=== PATIENT | female | born 1995 | race Hispanic/Latino ===

== ENCOUNTER 2017-07-27 13:48 | Outpatient (CLI) | payer OTHER | END 2017-07-27 13:49 | disposition home or self-care (01) | LOC: BICULT 13:48 | PROVIDERS: ATTEND Nurse Practitioner | DX: N63.0 Unspecified lump in unspecified breast (principal) ==

== ENCOUNTER 2017-10-19 20:48 | Day surgery (SDC) | payer OTHER ==
[2017-10-19 21:30] VITALS: TEMP 98.2; BMI 33.3
[2017-10-19 22:20] LABS: FFN Internal QC Analyzer PASS (PASS); FFN Internal QC Cassette PASS (PASS); Fetal Fibronectin Negative (Negative)
--- NOTE | 2017-10-20 00:26 | PRG ---
DATE OF SERVICE: 10/19/2017 TIME OF SERVICE: 2310 hours. HISTORY OF PRESENT ILLNESS: Ms. Giraldo is a 22-year-old 5, para 2, who presents complaining of mild lower abdominal pain and vaginal discharge. She denies rupture of membranes, bleeding. She reports she had a previous and previous , both at term. She sees Dr. Marcum at [facility]. TEST EVALUATOR HISTORY: Antepartum record not available on the unit. Review of last admission rev ealed the patient was A positive. PAST MEDICAL HISTORY: Denies. PAST SURGICAL HISTORY: x1. ALLERGIES: Denies. MEDICATIONS: vitamins. SOCIAL HISTORY: Denies tobacco, alcohol, or drug use. FAMILY HISTORY: Noncontributory. REVIEW OF SYSTEMS: Noncontributory. PHYSICAL EXAMINATION: GENERAL: female, in no acute distress. VITAL SIGNS: Temperature 98.6, respirations 18, pulse 85, blood pressure 118/72. HEENT: Within normal limits. LUNGS: Clear to auscultation bilaterally. HEART: Regular rhythm. ABDOMEN: Soft with occasional indentable contractions, 32-cm fundal height, FHTs 140s. PELVIC: Vulva without lesions. Vagina with slight discharge. Cervix is closed, long, and high by R N exam. EXTREMITIES: Without clubbing, cyanosis, or edema. LABORATORY DATA: CATEGORY DEVELOPMENT ANALYST-3 negative. fibronectin negative. HEART RATE TRACING: Initial heart rate tracing revealed contractions q.5 to 15 minutes w ith a category 1 heart rate tracing with baseline of 130s. The patient was administered IV fluids and contractions disappeared over approximately 1 hour. She i s discharged home to keep her scheduled followup this week with Dr. Marcum at [facility].
== END 2017-10-19 23:40 | disposition home or self-care (01) ==
LOC: L&D/OP 20:48
PROVIDERS: ATTEND Student in an Organized Health Care Education/Training Program
DX: O99.89 Other specified diseases and conditions complicating pregnancy, childbirth and the puerperium (principal); R10.30 Lower abdominal pain, unspecified; N89.8 Other specified noninflammatory disorders of vagina; Z79.899 Other long term (current) drug therapy; Z3A.00 Weeks of gestation of pregnancy not specified; Z98.891 History of uterine scar from previous surgery
CPT/HCPCS: 82731; 87480; 87510; 87660; 96360; 96361; 99283

== ENCOUNTER 2017-10-26 13:22 | Day surgery (SDC) | payer OTHER ==
[2017-10-26 13:52] VITALS: BP 120/57; TEMP 98.7; BMI 34.2
[2017-10-26 14:41] LABS: Bilirubin Negative (Negative); Blood, Urine Negative (Negative); Clarity CLEAR (Clear); Glucose, Urine (Dipstick) Negative (Negative); Leukocyte Negative (Negative); Nitrite Negative (Negative); Protein, Urine (Dipstick) Negative (Neg-Trace); Specific Gravity, Urine 1.014 (1.002-1.036); Urobilinogen 0.2 mg/dL (0.2-1.0)
[2017-10-26 14:44] LABS: Bacteria/HPF None Seen HPF (None Seen); Hyaline Casts/LPF 4-6 HYALINE CAST LPF (0-3 Hyaline); Pathc Cast-AUWi Flag 1.16 (0-2.49); RBC/HPF None Seen HPF (0-3); WBC/HPF None Seen HPF (0-3)
[2017-10-26] MEDS ORDERED: Lidocaine 2% Viscous Solution 10 ML, Aluminum & Magnesium Hydroxide 30 ML SSW SCH (14:45)
[2017-10-26 15:01] LABS: #Eosinphils 0.1 thou/uL (0.0-0.7); #Lymphocytes 1.8 thou/uL (1.20-3.40); #Monocytes 0.5 thou/uL (0.11-0.59); #Neutrophils 7.3 thou/uL (1.40-6.50); %Basophils 0.5 % (0.0-1.0); %Eosinophils 0.8 % (0.0-10.0); %Lymphocytes 18.5 % (21.0-51.0); %Monocytes 4.7 % (0.0-10.0); %Neutrophils 75.5 % (42.0-75.0); Hemoglobin 12.5 g/dL (12.0-16.0); Mean Corpuscular HGB CONC 33.9 g/dL (32.0-36.0); Mean Corpuscular Hemoglobin 26.8 pg (27.0-31.0); Mean Corpuscular Volume 79.1 fl (81.0-99.0); Mean Platelet Volume 8.5 fL (7.4-10.4); Platelet Count 235 thou/uL (130-400); RBC Distribution Width 13.8 % (11.5-14.5); Red Blood Cell (RBC) Count 4.66 mill/uL (4.20-5.40); White Blood Cell (WBC) Count 9.6 thou/uL (4.8-10.8)
[2017-10-26 15:24] LABS: AST (SGOT) 12 U/L (5-34); Anion Gap 13 mmol/L (10-20); BUN (Urea Nitrogen) 7 mg/dL (7.0-18.7); Calc. Creatinine Clearance 221 mL/min (70-130); Calcium 9.1 mg/dL (7.8-10.44); Carbon Dioxide 20 mmol/L (22-29); Chloride 105 mmol/L (98-107); Estimated GFR-MDRD Greater than 90; Glucose 75 mg/dL (70-105); Potassium 3.7 mmol/L (3.5-5.1); Sodium 134 mmol/L (136-145)
--- NOTE | 2017-10-26 18:41 | PRG ---
DATE OF SERVICE: 10/26/2017 PRESENTING COMPLAINT: Mid epigastric pain at 33 weeks gestation. HISTORY OF PRESENT ILLNESS: Ms. Giraldo is a 22-year-old 5, para 2, AB 2, sees Dr. Marcum at [facility]. She had a previous . She reports 9 hours of mid epigastric pain with mild na usea, no vomiting, active fetus, no rupture of membranes. The patient has a history of cholecystecto my. CAR CUSTOMIZER HISTORY: x1. x1, blood type A positive, antibody negative, Pap negative, rube lla immune, VDRL nonreactive, hepatitis B, GC and chlamydia negative. PAST MEDICAL HISTORY: None. PAST SURGICAL HISTORY: Cholecystectomy. ALLERGIES: Denies. MEDICATIONS: vitamins. SOCIAL HISTORY: Denies tobacco, alcohol, or drug use. FAMILY HISTORY: Noncontributory. REVIEW OF SYSTEMS: Noncontributory. PHYSICAL EXAMINATION: GENERAL: female, in no acute distress. VITAL SIGNS: Temperature 98.6, respirations 18, pulse 85, blood pressure 114/82. HEENT: Within normal limits. LUNGS: Clear to auscultation bilaterally. ABDOMEN: Soft and nontender. She has mild discomfort to deep palpation in the midepigastric region. Fundal height 33. FHTs 140s. Vulva without lesions. Vaginal exam deferred. EXTREMITIES: Without clubbing, cyanosis or edema. LABORATORY STUDIES: Urinalysis negative. Base met within normal limits. Mild hyponatremia, normal creatinine, AST was within normal limits and CBC was within normal limits with a white count of 9.6, hematocrit of 37, normal platelet count. SUMMARY OF HOSPITAL COURSE: The patient had a reactive heart rate tracing without deceleration s. She was given a white GI cocktail and had resolution of her discomfort. She is discharged home a nd instructed to use Maalox, Mylanta, or Zantac 75 OTC p.r.n. and keep scheduled follow up with Dr. Maria vargas.
== END 2017-10-26 15:45 | disposition home or self-care (01) ==
LOC: L&D/OP 13:22
PROVIDERS: ATTEND Student in an Organized Health Care Education/Training Program
DX: O99.89 Other specified diseases and conditions complicating pregnancy, childbirth and the puerperium (principal); R10.13 Epigastric pain; Z3A.33 33 weeks gestation of pregnancy
CPT/HCPCS: 36415; 51701; 80048; 81001; 84450; 85025; 99283; A4353

== ENCOUNTER 2017-11-17 11:01 | Day surgery (SDC) | payer OTHER ==
[2017-11-17 11:36] VITALS: BP 122/78; TEMP 99.1; BMI 33.5
--- NOTE | 2017-11-17 13:10 | PRG ---
DATE OF SERVICE: 11/17/2017 REGULAR PHYSICIAN: Dr. Marcum at [facility] EVALUATING PHYSICIAN: Scott Fatima M.D. CHIEF COMPLAINT: Contractions since last night. HISTORY OF PRESENT ILLNESS: Ms. Giraldo is a 22-year-old AB2 with an estimated date of confinement of 12/10/2017 who presents complaining of uterine contractions over the last 24 hours. She denies ruptured membranes or vaginal bleeding. Her care has been at [facility] and she sees Dr. Marcum. OBSTETRICAL HISTORY: section at term, followed by a successful . PAST MEDICAL HISTORY: None. CURRENT MEDICATIONS: vitamins and iron. PAST SURGICAL HISTORY: as above, gallbladder removal. SOCIAL HISTORY: She denies tobacco or alcohol use. ALLERGIES: No known allergies. FAMILY HISTORY: She denies pelvic malignancy. PHYSICAL EXAMINATION: VITAL SIGNS: Blood pressure is 122/78, temperature 99.1, pulse 75 with respirations of 18. ABDOMEN: Soft, nontender and gravid. There is no guarding or rebound. Her fundus is nontender. PELVIC: On pelvic examination by the labor nurse her cervix is closed and long. heart rate tr acing is reassuring. She initially had a few irregular contractions, but these essentially went away with oral hydration. ASSESSMENT: 1. A 36 and 5/7 week intrauterine . 2. History of previous section with history of a successful vaginal after se ction, dispositioned for trial of labor. 3. No evidence of active labor at this time. PLAN: The patient will be discharged to home. She was instructed to keep herself well hydrated at h ome. She was given complete labor precautions and has an appointment this Thursday in clinic.
== END 2017-11-17 12:50 | disposition home or self-care (01) ==
LOC: L&D/OP 11:01
PROVIDERS: ATTEND Student in an Organized Health Care Education/Training Program
DX: O47.03 False labor before 37 completed weeks of gestation, third trimester (principal); Z3A.36 36 weeks gestation of pregnancy
CPT/HCPCS: 99282

== ENCOUNTER 2017-11-20 14:14 | Day surgery (SDC) | payer OTHER ==
[2017-11-20 15:50] LABS: #Basophils 0.1 thou/uL (0.0-0.2); #Eosinphils 0.1 thou/uL (0.0-0.7); #Lymphocytes 1.8 thou/uL (1.20-3.40); #Monocytes 0.4 thou/uL (0.11-0.59); #Neutrophils 5.3 thou/uL (1.40-6.50); %Basophils 0.7 % (0.0-1.0); %Eosinophils 1.3 % (0.0-10.0); %Lymphocytes 23.7 % (21.0-51.0); %Monocytes 5.3 % (0.0-10.0); %Neutrophils 69.1 % (42.0-75.0); Hemoglobin 11.6 g/dL (12.0-16.0); Mean Corpuscular HGB CONC 33.8 g/dL (32.0-36.0); Mean Corpuscular Hemoglobin 26.3 pg (27.0-31.0); Mean Corpuscular Volume 77.8 fl (81.0-99.0); Mean Platelet Volume 8.9 fL (7.4-10.4); Platelet Count 217 thou/uL (130-400); RBC Distribution Width 14.2 % (11.5-14.5); Red Blood Cell (RBC) Count 4.42 mill/uL (4.20-5.40); White Blood Cell (WBC) Count 7.7 thou/uL (4.8-10.8)
[2017-11-20 15:54] LABS: Bilirubin Negative (Negative); Blood, Urine Negative (Negative); Clarity CLOUDY (Clear); Glucose, Urine (Dipstick) Negative (Negative); Leukocyte Moderate (Negative); Nitrite Negative (Negative); Protein, Urine (Dipstick) Negative (Neg-Trace); Specific Gravity, Urine 1.024 (1.002-1.036); pH, Urine 7.5 (5.0-9.0)
[2017-11-20 15:56] LABS: Bacteria/HPF Rare-Few HPF (None Seen); Hyaline Casts/LPF 0-3 HYALINE CAST LPF (0-3 Hyaline); Pathc Cast-AUWi Flag 0.29 (0-2.49)
[2017-11-20 16:11] LABS: Crystals/HPF 1+ AMORPH PHOS HPF (Negative); RBC/HPF 0-3 HPF (0-3)
[2017-11-20] MEDS ORDERED: Acetaminophen 500 MG TAB PO SCH (16:45)
[2017-11-20 17:31] LABS: ALT (SGPT) Less than 7 U/L (8-55); AST (SGOT) 10 U/L (5-34); Albumin 3.7 g/dL (3.5-5.0); Alkaline Phosphatase 194 U/L (40-150); Anion Gap 13 mmol/L (10-20); BUN (Urea Nitrogen) 7 mg/dL (7.0-18.7); Bilirubin, Total 0.5 mg/dL (0.2-1.2); Calc. Creatinine Clearance 0 mL/min (70-130); Calcium 9.2 mg/dL (7.8-10.44); Carbon Dioxide 23 mmol/L (22-29); Chloride 104 mmol/L (98-107); Estimated GFR-MDRD Greater than 90; Globulin 3.4 g/dL (2.4-3.5); Glucose 82 mg/dL (70-105); Potassium 4.1 mmol/L (3.5-5.1); Protein, Total 7.1 g/dL (6.0-8.3); Sodium 136 mmol/L (136-145)
--- NOTE | 2017-11-21 04:21 | SS ---
LABOR AND DELIVERY TRIAGE NOTE DATE OF EVALUATION: 11/20/2017 REGULAR PHYSICIAN: Dr. Amy Marcum at [facility]. EVALUATING PHYSICIAN: Scott Fatima M.D. CHIEF COMPLAINT: Visual change, shortness of breath, brought to the ER by her family. HISTORY OF PRESENT ILLNESS: Ms. Giraldo is a 22-year-old , AB2 with an estimated date of confinement of 12/10/2017 who was brought to the ER after an episode of visual changes which she describes like "lightning bolts " when she was seen in the office for care today. She also reported accompanying brief chest pain. She was brought to the Emergency Room where she had a normal EKG there and was brought to Labor and Delivery for evaluation of cramping, which she reported down in the ER. She denies ruptured membranes or vaginal bleeding. PAST OBSTETRICAL HISTORY: Includes section followed by successful . PAST SURGICAL HISTORY: as above and cholecystectomy. ALLERGIES: No known allergies. SOCIAL HISTORY: Denies tobacco, alcohol, or drug use. FAMILY HISTORY: Unremarkable. REVIEW OF SYSTEMS: Denies nausea, vomiting, fever or chills. PHYSICAL EXAMINATION: VITAL SIGNS: Initial blood pressure in the ER was elevated, but she had an O2 saturation on room air of 99%. Vitals in L&D: BP= 131/77, Pulse= 77. GENERAL: She is in no acute distress. LUNGS: Chest clear to auscultation. CARDIOVASCULAR: Regular rate and rhythm. ABDOMEN: Soft, gravid, and nontender. heart tones are stable and reactive. There are no decelerations. EXTREMITIES: No significant uterine activity is seen. EKG done in the ER is normal sinus rhythm with a ventricular rate of 80. LABORATORY DATA: Labs in Labor and Delivery show white count 7.7, hemoglobin 11.6, hematocrit 34.3, platelet count 217,000. BUN of 7, creatinine of 0.57, total bilirubin 0.5, AST and ALT are 10 and less than 7 respectively. Urinalysis shows a specific gravity of 1.024 with negative protein, negative glucose, 40 of ketones, negative blood, and negative nitrites. ASSESSMENT: 1. A 37-week intrauterine . 2. Previous section with successful trial of labor currently dispositioned for another trial of labor. 3. No evidence of significant cardiovascular issues and no evidence of preeclampsia. PLAN: The patient is instructed regarding the normal workup which she has had today. She was reassured and told to go home to rest. She was told to hydrate herself and to drink at least 8-10 glasses of water a day. She voiced understanding of her discharge instructions and was sent home in good condition. FAVIO
== END 2017-11-20 17:45 | disposition home or self-care (01) ==
LOC: ERS 14:14 → L&D/OP 14:39
PROVIDERS: ATTEND Obstetrics & Gynecology
DX: O99.89 Other specified diseases and conditions complicating pregnancy, childbirth and the puerperium (principal); R07.9 Chest pain, unspecified; R06.02 Shortness of breath; Z98.891 History of uterine scar from previous surgery; Z79.899 Other long term (current) drug therapy; Z3A.37 37 weeks gestation of pregnancy
CPT/HCPCS: 36415; 36416; 80053; 81003; 81015; 85025

== ENCOUNTER 2017-12-09 17:57 | Inpatient (IN) | payer OTHER ==
[2017-12-09 18:43] VITALS: BMI 34.4
[2017-12-09] MEDS: Lactated Ringer's 1,000 ML IV SCH (19:00)
[2017-12-09] MEDS ORDERED: Methylergonovine 0.2 MG/ML VIAL IM PRN (19:12)
[2017-12-09] MEDS ORDERED: Carboprost 250 MCG/ML AMP IM PRN (19:12)
[2017-12-09] MEDS ORDERED: Promethazine HCl 25 MG/ML VIAL IM PRN (19:12)
[2017-12-09] MEDS ORDERED: Ondansetron HCl/PF 4 MG/2 ML Vial IVP PRN (19:12)
[2017-12-09] MEDS ORDERED: NS / Oxytocin 40 units/1000ml 1,000 ML IV PRN (19:12)
[2017-12-09] MEDS ORDERED: Misoprostol 200 MCG TAB PR PRN (19:12)
[2017-12-09] MEDS ORDERED: HYDROcodone/Acetaminophen 5/325 mg Tablet PO PRN (19:12)
[2017-12-09] MEDS ORDERED: Zolpidem Tartrate 5 MG TAB PO PRN (19:12)
[2017-12-09] MEDS ORDERED: Acetaminophen 500 MG TAB PO PRN (19:12)
[2017-12-09] MEDS ORDERED: Diphenoxylate HCl/Atropine Tablet PO PRN (19:12)
[2017-12-09] MEDS ORDERED: Lidocaine 1% (PF) 30 ML VIAL SC PRN (19:12)
[2017-12-09] MEDS ORDERED: Ibuprofen 800 MG TAB PO PRN (19:12)
[2017-12-09] MEDS ORDERED: Butorphanol Tartrate 1 MG/ML VIAL SLOW IVP PRN (19:12)
[2017-12-09 19:19] LABS: Hemoglobin 11.3 g/dL (12.0-16.0); Mean Corpuscular HGB CONC 33.9 g/dL (32.0-36.0); Mean Corpuscular Hemoglobin 26.1 pg (27.0-31.0); Mean Corpuscular Volume 77.1 fL (78.0-98.0); Mean Platelet Volume 9.1 fL (7.4-10.4); Platelet Count 212 thou/uL (130-400); RBC Distribution Width 14.6 % (11.5-14.5); Red Blood Cell (RBC) Count 4.34 mill/uL (4.20-5.40); White Blood Cell (WBC) Count 7.5 thou/uL (4.8-10.8)
[2017-12-09 19:57] LABS: Syphilis Antibody Nonreactive (Nonreactive); Syphilis Antibody Index 0.04 S/CO (<1.00 Non-Reactive)
[2017-12-09 19:58] LABS: HBSAg Index 0.19 S/CO (0-0.99); HIV (1/2) Antibody/Antigen Non-Reactive (NonReactive); Hep B Surf Ag Non-Reactive S/CO (NonReactive)
--- NOTE | 2017-12-09 20:06 | PDOC.LDPN ---
Labor & Delivery Progress Note - Subjective Subjective: comfortable - Objective Vital signs reviewed and normal: yes General: NAD, resting Uterine fundus: non tender Dilation: 3 Effacement: 25% Station: -3 FHT: category 1 Procedures: Cooks Balloon placed Plan: continue plan of care -: Cooks Balloon placed without difficulty and filled to 80cc in each balloon.
[2017-12-10] MEDS ORDERED: Bupivacaine 0.75% 13.4 ML, fentaNYL Citrate/PF 400 MCG in Sodium Chloride 0.9% 78.6 ML EPIDURAL SCH (02:00)
[2017-12-10] MEDS ORDERED: DISCONTINUE ALL PREVIOUS NARCOTICS FS SCH (02:00)
[2017-12-10] MEDS: Lactated Ringer's 1,000 ML IV SCH ×2 (02:14→02:56)
[2017-12-10] MEDS ORDERED: Lidocaine HCl/Epinephrine 5 ML AMPUL IJ ONE (02:15)
[2017-12-10] MEDS ORDERED: Lidocaine 1% (PF) 30 ML VIAL ONE ×2 (02:15→10:02)
[2017-12-10] MEDS ORDERED: Promethazine HCl 25 MG/ML VIAL IM PRN (02:36)
[2017-12-10] MEDS ORDERED: Acetaminophen 325 MG TAB PO PRN (02:36)
[2017-12-10] MEDS ORDERED: diphenhydrAMINE 50 MG/ML VIAL IVP PRN (02:36)
[2017-12-10] MEDS ORDERED: ePHEDrine/0.9% NaCl/PF SYRINGE 50 mg/10 ml SLOW IVP PRN (02:36)
[2017-12-10] MEDS ORDERED: Hydrocerin (Eucerin) Cream 120 gm Jar TOP PRN (02:36)
[2017-12-10] MEDS ORDERED: Lactated Ringer's 500 ML IV PRN (02:36)
[2017-12-10] MEDS ORDERED: Naloxone HCl 0.4 mg/ml Vial IVP PRN ×2 (02:36)
[2017-12-10] MEDS ORDERED: Ondansetron HCl/PF 4 MG/2 ML Vial IVP PRN ×2 (02:36→12:37)
[2017-12-10] MEDS ORDERED: fentaNYL Citrate/PF 400 MCG, Bupivacaine 0.5% 20 ML in Sodium Chloride 0.9% 72 ML EPIDURAL SCH (02:45)
[2017-12-10] MEDS ORDERED: Communication Order-Pharmacy FS SCH (02:45)
--- NOTE | 2017-12-10 03:39 | PDOC.LDPN ---
Labor & Delivery Progress Note - Subjective Subjective: comfortable - Objective Vital signs reviewed and normal: yes General: NAD, resting Uterine fundus: non tender Dilation: 5 Effacement: 50% Station: -2 FHT: category 1 AROM: clear fluid Plan: continue plan of care -: Called to room to evaluate for presenting part. Compound presentation noted with head primarily presenting but fingers noted on left side of head. Fingers reduced and AROM peformed. Patient tolerated the procedure well. Vertex again noted following AROM.
[2017-12-10] MEDS ORDERED: NS w/ Oxytocin 10 units 500 ML IV SCH ×2 (06:00)
--- NOTE | 2017-12-10 09:09 | PDOC.LDHP ---
Labor and Delivery H&P Chief complaint: scheduled induction HPI: 22yo at 40w0d for TOLAC IOL. Overnight received cook balloon, came out at 0300, around that time had SVE that was hand presentation, hand was reduced and AROM by Dr Walsh. Comfortable with epidural, no abd pain or vag bleeding Current gestational age (weeks): 40 Due date: 12/10/17 Dating criteria: last menstrual period Grav: 3 Para: 2 Current complications: none Abnormal US findings: No Past Medical History: denies Current medications: pre- vitamins Previous surgical history: low tranverse CS Allergies/Adverse Reactions: Allergies Allergy/AdvReac Type Severity Reaction Status Date / Time No Known Allergies Allergy Verified 12/09/17 18:44 Social history: none - Physical Exam Vital signs reviewed and normal: yes General: NAD Heart: RRR Lungs: CTAB Abdomen: gravid Extremeties: no edema FHT: category 1 Balta contractions every: 2-3min - Vaginal Exam cm dilated: 7 Effacement: 75% Station: -1 - OB Labs Blood type: A RH: positive Antibody Screen: negative HIV: negative RPR: negative HEPSAg: negative 1 hour GCT: negative GBS: negative Urine drug screen: negative Rubella: immune - Assessment L&D Assessment: elective induction at term - Plan Plan: admit to L&D, informed consent obtained, anesthesia consult for pain management -: Discussed risks of TOLAC including uterine rupture of <1% and incr risk of rupture with use of pitocin approx 1-2%. Disc risks assoc with uterine rupture of transfusion hysterectomy injury or , pt understands and wishes to proceed. Pt is good TOLAC candidate based on prior and >2yr from last CS. IUPC placed to titrate pitocin since no SVE change since last check.
[2017-12-10] MEDS ORDERED: NS / Oxytocin 40 units/1000ml 1,000 ML ONE (10:02)
--- NOTE | 2017-12-10 10:21 | PDOC.OPDEL ---
OB Operative/Delivery Note Delivery Dr/Surgeon: Trixie Assist: n/a Pre-Delivery Diagnosis: elective induction Procedure/Post Delivery Dx: vaginal delivery after CS (, shoulder dystocia) Weeks gestation: 40 Anesthesia: epidural - Findings A Sex: male - 1 min: 8 - 5 min: 9 - Additional Findings/Plan Placenta delivered: spontaneous Repaired Obstetrical Laceration: none Estimated blood loss: 200 Compilations/Other Findings: anterior shoulder- right slightly impacted behind pubic bone delivered with [facility] and suprapubic pressure, total time on perineum < 1min. Post delivery plan: routine recovery
[2017-12-10] MEDS ORDERED: Benzocaine/Menthol 20-0.5% 60 ML CAN TOP PRN (12:37)
[2017-12-10] MEDS ORDERED: Adacel (T-DAP) 0.5 ML VIAL IM ONE (12:37)
[2017-12-10] MEDS ORDERED: NS / Oxytocin 40 units/1000ml 1,000 ML IV SCH (12:37)
[2017-12-10] MEDS ORDERED: diphenhydrAMINE 25 MG CAP PO PRN (12:37)
[2017-12-10] MEDS ORDERED: Preparation H Ointment 28 GM TUBE PR PRN (12:37)
[2017-12-10] MEDS ORDERED: Milk Of Magnesia 30 ML UDCUP PO PRN (12:37)
[2017-12-10] MEDS ORDERED: Lanolin Ointment 7 GM TUBE TOP PRN (12:37)
[2017-12-10] MEDS ORDERED: HYDROcodone/Acetaminophen 5/325 mg Tablet PO PRN (12:37)
[2017-12-10] MEDS ORDERED: Bisacodyl 10 MG SUPP PR PRN (12:37)
[2017-12-10] MEDS: Ibuprofen 800 MG TAB PO SCH ×2 (14:09→21:47)
[2017-12-10] MEDS: HYDROcodone/Acetaminophen 5/325 mg Tablet PO PRN (16:15)
[2017-12-10] MEDS: Ferrous Sulfate 325 MG TAB PO SCH (16:17)
[2017-12-10] MEDS: Docusate Calcium (SURFAK) 240 MG CAP PO SCH (21:46)
[2017-12-11] MEDS: HYDROcodone/Acetaminophen 5/325 mg Tablet PO PRN ×3 (02:27→21:16)
[2017-12-11] MEDS: Ibuprofen 800 MG TAB PO SCH ×3 (06:25→21:16)
[2017-12-11] MEDS ORDERED: Bupivacaine/Epinephrine 0.25% 30 ML VIAL ONE (07:51)
[2017-12-11] MEDS: Ferrous Sulfate 325 MG TAB PO SCH ×2 (09:15→17:45)
[2017-12-11] MEDS: Docusate Calcium (SURFAK) 240 MG CAP PO SCH ×2 (09:15→21:16)
[2017-12-11] MEDS: Prenatal Vitamin 1 TAB PO SCH (09:15)
--- NOTE | 2017-12-11 13:15 | PDOC.PP ---
Post Progress Note Post Day #: 1 PO intake tolerated: yes Flatus: yes Ambulation: yes Vital Signs (12 hours) Temp Pulse Resp BP 12/11/17 08:00 98.0 F 76 20 12/11/17 07:51 98.0 F 76 20 111/56 L 12/11/17 04:00 98.5 F 70 18 128/64 Weight Weight 188 lb - Physical Examination General: NAD Cardiovascular: RRR Respiratory: non-labored breathing Abdominal: no distention, appropriately TTP Fundus firm & at: umb-2 Extremities: negative homans (B) Skin: no rash Neurological: no gross focal deficits Psychiatric: normal affect Result Diagrams: 12/09/17 19:06 Additional Labs: Post Labs Blood Type A POSITIVE 12/09/17 19:06 Hep Bs Antigen Non-Reactive S/CO (NonReactive) 12/09/17 19:06 (1) Vaginal after , delivered, current hospitalization Code(s): O34.219 - MATERNAL CARE FOR UNSP TYPE SCAR FROM PREVIOUS DEL Status: Acute - Assessment/Plan PPD1 s/p VSSAF C/o bilateral hand pain, R>L, c/w carpal tunnel, probably worse due to fluid shifts and swelling. Rec ice, wrist splints, elevation of arm and can try prn gabapentin. No other issues normal lochia, . Rh pos RImm Cont PP care, home tomorrow
[2017-12-12] MEDS: HYDROcodone/Acetaminophen 5/325 mg Tablet PO PRN ×2 (02:30→13:15)
[2017-12-12] MEDS: Ibuprofen 800 MG TAB PO SCH (05:37)
[2017-12-12 07:42] VITALS: BP 117/60; TEMP 98.3
[2017-12-12] MEDS ORDERED: Gabapentin 300 MG CAP PO SCH (09:00)
--- NOTE | 2017-12-12 09:23 | DIS ---
DATE OF ADMISSION: 12/09/2017 DATE OF DISCHARGE: 12/12/2017 ADMITTING DIAGNOSES: Intrauterine at 40 weeks, previous section x1, elective ila ction of labor. DISCHARGE DIAGNOSES: Intrauterine at 40 weeks, previous section x1, elective ila ction of labor. PROCEDURE: Term spontaneous vaginal delivery. HOSPITAL COURSE: The patient is a 22-year-old G3, P2 female, who presented at 40 weeks' gestation fo r an elective induction of labor after a previous . The labor process was complicated by a compound presentation early in the labor process, but was effectively reduced at time of rupture of m embranes. The patient ultimately had an uncomplicated vaginal after and transferred t o for recovery. Her course has been complicated by hand and wrist pain due to bilateral carpal tunnel that she has been experiencing through the ; however, it is worse he re in the immediate period than it had been previously. It is now day 2, and t he patient is doing well. She continues to have intermittent hand and wrist pain. Dr. Marcum had s uggested gabapentin p.r.n. and splints. We discussed this together once again and the patient has ag isabela to utilization of the splints and the gabapentin p.r.n. The patient has also been counseled jackie t the most effective treatment is going to be a few days' time when her body will naturally diurese. The patient is, otherwise, tolerating p.o., voiding on her own, having decreased lochia, and good pa in control. PHYSICAL EXAMINATION: VITAL SIGNS: Her blood pressure today is 117/60, temperature 98.3, pulse of 82, respiratory rate of 20. GENERAL: She appears to be in no acute distress. She is alert and oriented, cooperative and pleasan t to interact with. HEAD: Normocephalic, atraumatic. LUNGS: Clear to auscultation. ABDOMEN: Fundus is firm at the umbilicus. EXTREMITIES: Nontender with [id number] edema. DISCHARGE INSTRUCTIONS: The patient is being discharged to home. She has 2 prescriptions, one for g abapentin 300 mg to be taken daily #30 and ibuprofen 800 mg to be taken as needed t.i.d. She has ins tructions to follow up with Dr. Marcum in 6 weeks. She has instructions to follow up sooner if she experiences increasing pain, bleeding, or fever or if her carpal tunnel pain gets worse. The patient has expressed understanding.
[2017-12-12] MEDS: Ferrous Sulfate 325 MG TAB PO SCH (09:33)
[2017-12-12] MEDS: Docusate Calcium (SURFAK) 240 MG CAP PO SCH (09:35)
[2017-12-12] MEDS: Prenatal Vitamin 1 TAB PO SCH (09:35)
== END 2017-12-12 13:30 | disposition home or self-care (01) | DRG 775 ==
LOC: L&D 17:57 → 3SW 12-10 12:19
PROVIDERS: ADMIT Student in an Organized Health Care Education/Training Program; ATTEND Student in an Organized Health Care Education/Training Program
PROC: 10E0XZZ Delivery of Products of Conception, External Approach (ICD-10-PCS; principal; 2017-12-10)
PROC: 10907ZC Drainage of Amniotic Fluid, Therapeutic from Products of Conception, Via Natural or Artificial Opening (ICD-10-PCS; 2017-12-10)
PROC: 0U7C7ZZ Dilation of Cervix, Via Natural or Artificial Opening (ICD-10-PCS; 2017-12-10)
PROC: 3E033VJ Introduction of Other Hormone into Peripheral Vein, Percutaneous Approach (ICD-10-PCS; 2017-12-10)
PROC: 10H07YZ Insertion of Other Device into Products of Conception, Via Natural or Artificial Opening (ICD-10-PCS; 2017-12-10)
DX: O66.0 Obstructed labor due to shoulder dystocia (principal); O99.354 Diseases of the nervous system complicating childbirth; O34.211 Maternal care for low transverse scar from previous cesarean delivery; Z3A.40 40 weeks gestation of pregnancy; Z37.0 Single live birth; G56.03 Carpal tunnel syndrome, bilateral upper limbs
CPT/HCPCS: 51702; 85027; 86780; 86850; 86900; 86901; 87340; 87389; C1726; J0595; J2001; J2405; J2550; J3010; J3490; J7050

== ENCOUNTER 2018-02-03 11:23 | Day surgery (SDC) | payer OTHER ==
[2018-02-02 09:02] VITALS: BMI 30.9
[2018-02-03] MEDS ORDERED: CEFAZOLIN/Water 2 GM/20 ML SYRINGE ONE (11:57)
[2018-02-03 12:35] LABS: BHCG - Serum Negative (NEGATIVE); Pregs Control Background? CLEAR/WHITE (CLR/WHITE); Pregs Control Bar Appear? YES (CONTROL BAR)
[2018-02-03] MEDS ORDERED: Bupivacaine/Epinephrine 0.25% 30 ML VIAL ONE (13:19)
[2018-02-03] MEDS ORDERED: Fentanyl 100 MCG/2 ML VIAL ONE ×4 (13:35→15:11)
[2018-02-03] MEDS ORDERED: Meperidine HCl/PF 25 MG/ML VIAL ONE (14:35)
[2018-02-03] MEDS ORDERED: Promethazine HCl 25 MG/ML VIAL ONE (15:00)
[2018-02-03] MEDS ORDERED: HYDROcodone/Acetaminophen 5/325 mg Tablet ONE (17:06)
--- NOTE | 2018-02-03 19:11 | OP ---
DATE OF PROCEDURE: 02/03/2018 PREOPERATIVE DIAGNOSIS: Left inguinal hernia. POSTOPERATIVE DIAGNOSIS: Left inguinal hernia. PROCEDURE PERFORMED: Da Patricia laparoscopic left inguinal hernia repair with mesh, 3DMax large. SURGEON: Dr. Felix. ANESTHESIA: General. ESTIMATED BLOOD LOSS: Minimal. COMPLICATIONS: None. SPECIMEN: None. FINDINGS: Left inguinal hernia. TECHNIQUE: The patient was taken to the operating room and placed supine on the table. After genera l anesthetic was obtained, a Ceballos was placed. The abdomen was shaved, prepped, and draped in a ster ile fashion. Curved incision made above the umbilicus. Cautery was used to dissect down to and scor e the fascia. Abdominal cavity entered bluntly using a Johana clamp. Holding stitch of PDS was place d on each side of the fascia. A 11 mm balloon trocar is placed and high-flow pneumoperitoneum was ob tained. Left and right abdominal 8 mm robot trocars were placed under direct visualization. The pat ient was placed in Trendelenburg position. All ports were docked to the robot. The peritoneum was t aken down in the left groin, exposing the preperitoneal space. There is no right inguinal hernia. T he preperitoneal space is dissected in the left groin all the way down to the pubic tubercle medially , anterior superiorly iliac crest laterally, iliopectineal line is fully exposed. There is an indire ct hernia sac that is dissected high up onto the peritoneum and out of the inguinal canal. The cord structures are skeletonized in order to facilitate this. The round ligament is cauterized and cut. A 3DMax large medial aspect is placed over pubic tubercle was laid out to cover the preperitone al space. The mesh was placed to fully cover the direct, indirect and femoral areas. The mesh is se wn to the pubic tubercle medially and to the posterior fascia laterally using a 2-0 Vicryl suture. T he peritoneum was reapproximated using running 3-0 Stratafix. All port sites were infiltrated using local anesthetic. All ports are removed under camera visualization without bleeding. Pneumoperiton eum was let down. PDS was used to close the fascial defect above the umbilicus. All incisions were irrigated and closed using 4-0 Monocryl and Dermabond. [facility] All instrument counts, needle counts, and lap counts were correct.
== END 2018-02-03 17:59 | disposition home or self-care (01) ==
LOC: SDC 11:23
PROVIDERS: ATTEND Surgery
PROC: 0YU64JZ Supplement Left Inguinal Region with Synthetic Substitute, Percutaneous Endoscopic Approach (ICD-10-PCS; principal; 2018-02-03)
DX: K40.90 Unilateral inguinal hernia, without obstruction or gangrene, not specified as recurrent (principal)
CPT/HCPCS: 84703; 96374; C1781; J2175; J2550; J3010

== ENCOUNTER 2018-08-10 14:44 | Outpatient (CLI) | payer MEDICAID ==
--- NOTE | 2018-08-10 15:57 | ULT ---
PELVIC ULTRASOUND WITH PADGETT SCALE, COLOR FLOW, AND SPECTRAL DOPPLER: HISTORY: Positive test. FINDINGS: The uterus measures 14.8 x 8.8 x 6.3 cm. The right ovary measures 3.6 x 1.9 x 3.1 cm. The left ovar y measures 3.2 x 2 x 3.5 cm. Flow is demonstrated to both ovaries. A single live intrauterine gestation is seen with measurements corresponding to an estimated gestatio nal age of 10 weeks 3 days and LUIS at 03/05/2019. The heart rate measures 158 b.p.m. The mean sac diameter measures 4.56 cm, yolk sac diameter 0.57 cm, and crown-rump length 3.33 cm. No free flu id is seen. No subchorionic hemorrhage is noted. IMPRESSION: Single live intrauterine of 10 weeks 3 days estimated gestational age and estimated date of delivery at 03/05/2019. POS: [facility]
== END 2018-08-10 14:45 | disposition home or self-care (01) ==
LOC: BICULT 14:44
PROVIDERS: ATTEND Nurse Practitioner
DX: O09.91 Supervision of high risk pregnancy, unspecified, first trimester (principal); Z3A.10 10 weeks gestation of pregnancy
CPT/HCPCS: 76856; 93976

== ENCOUNTER 2018-09-15 15:03 | Emergency (ER) | payer MEDICAID ==
--- NOTE | 2018-09-15 16:33 | ULT ---
ULTRASOUND OBSTETRICAL COMPLETE: 09/15/18 HISTORY: 23-year-old female presents with umbilical and pelvic pain. FINDINGS: number: [place]. lie: Transverse with head to maternal left. Maternal cervix: Closed, but not measured. Placenta: Posterior. No placenta previa. No placental abruption. Amniotic fluid volume: Subjectively normal. RODGER not measured. heart rate: 145 bpm anatomy was not evaluated in detail. biometry: Head circumference (HC): 11.9 cm 15w 6d Biparietal diameter (BPD): 3.0 cm 15w 3d Abdominal circumference (AC): 9.9 cm 16w 0d Femur length (FL): 1.7 cm 15w 0d Average ultrasound age (AUA): 15w 4d Estimated date of delivery (LUIS): 03/05/2019. Last menstrual period (LMP): 06/02/2018. Gestational age by LMP: 15w 0d Estimated weight (EFW): Not obtained. Bilateral maternal ovaries are normal in size, with blood flow demonstrated by doppler. IMPRESSION: 1. Live early second trimester intrauterine gestation. 2. Estimated gestational age of 15 weeks, 4 days. 3. Transverse lie. 4. No evidence of complications. JN R POS: [facility]
[2018-09-15] MEDS ORDERED: Dicyclomine 20 MG TAB ONE (17:28)
[2018-09-15] MEDS ORDERED: diphenhydrAMINE 50 MG/ML VIAL ONE (17:28)
[2018-09-15] MEDS ORDERED: Metoclopramide HCl 10 MG/2 ML VIAL ONE (17:28)
[2018-09-15 17:39] LABS: #Eosinphils 0.2 thou/uL (0.0-0.7); #Lymphocytes 2.3 thou/uL (1.20-3.40); #Monocytes 0.4 thou/uL (0.11-0.59); #Neutrophils 5.8 thou/uL (1.40-6.50); %Basophils 0.3 % (0.0-1.0); %Eosinophils 1.9 % (0.0-10.0); %Lymphocytes 26.6 % (21.0-51.0); %Monocytes 4.8 % (0.0-10.0); %Neutrophils 66.5 % (42.0-75.0); Hemoglobin 12.3 g/dL (12.0-16.0); Mean Corpuscular HGB CONC 34.1 g/dL (32.0-36.0); Mean Corpuscular Hemoglobin 27.8 pg (27.0-31.0); Mean Corpuscular Volume 81.7 fL (78.0-98.0); Mean Platelet Volume 8.5 fL (7.4-10.4); Platelet Count 233 thou/uL (130-400); RBC Distribution Width 12.3 % (11.5-14.5); Red Blood Cell (RBC) Count 4.41 mill/uL (4.20-5.40); White Blood Cell (WBC) Count 8.7 thou/uL (4.8-10.8)
[2018-09-15 17:50] LABS: Bilirubin Negative (Negative); Blood, Urine Negative (Negative); Clarity CLOUDY (Clear); Glucose, Urine (Dipstick) Negative (Negative); Leukocyte Moderate (Negative); Nitrite Negative (Negative); Protein, Urine (Dipstick) Negative (Neg-Trace); Specific Gravity, Urine 1.013 (1.002-1.036); pH, Urine 7.5 (5.0-9.0)
[2018-09-15 17:51] LABS: Bacteria/HPF 1+ HPF (None Seen); Hyaline Casts/LPF 4-6 HYALINE CAST LPF (0-3 Hyaline); Pathc Cast-AUWi Flag 1.22 (0-2.49)
[2018-09-15 18:12] LABS: ALT (SGPT) 7 U/L (8-55); AST (SGOT) 9 U/L (5-34); Albumin 3.8 g/dL (3.5-5.0); Alkaline Phosphatase 67 U/L (40-150); Anion Gap 11 mmol/L (10-20); BUN (Urea Nitrogen) 8 mg/dL (7.0-18.7); Bilirubin, Total 0.2 mg/dL (0.2-1.2); Calc. Creatinine Clearance 0 mL/min (70-130); Calcium 8.9 mg/dL (7.8-10.44); Carbon Dioxide 24 mmol/L (22-29); Chloride 104 mmol/L (98-107); Estimated GFR-MDRD Greater than 90; Globulin 3.4 g/dL (2.4-3.5); Glucose 86 mg/dL (70-105); Potassium 3.8 mmol/L (3.5-5.1); Protein, Total 7.2 g/dL (6.0-8.3); Sodium 135 mmol/L (136-145)
[2018-09-15 18:13] LABS: RBC/HPF 0-3 HPF (0-3)
[2018-09-17 21:10] LABS: Chlamydia by PCR Not Detected (NotDetected); GC by PCR Not Detected (NotDetected)
== END 2018-09-15 19:28 | disposition home or self-care (01) ==
LOC: ERS 15:03
DX: O99.89 Other specified diseases and conditions complicating pregnancy, childbirth and the puerperium (principal); R10.9 Unspecified abdominal pain; Z3A.15 15 weeks gestation of pregnancy
CPT/HCPCS: 36415; 76805; 80053; 81003; 81015; 85025; 87086; 87480; 87491; 87510; 87591; 87660; 96365; 96375; J1200; J2765

== ENCOUNTER 2018-10-22 09:04 | Outpatient (CLI) | payer OTHER ==
--- NOTE | 2018-10-22 10:36 | ULT ---
Obstetrical ultrasound: 10/22/2018 COMPARISON: 09/15/2018 HISTORY: Evaluate anatomy and cervical length TECHNIQUE: Multiplanar grayscale sonographic imaging of the gravid uterus obtained. FINDINGS: Cervical length is 4.8 cm, within normal limits. A single intrauterine gestation is present with a breech presentation. Placenta is located posteriorly demonstrating no evidence for previa or abruption. heart rate is 144 beats per minute. The umbilical cord insertion,, umbilical cord, stomach, four-chamber heart view, nose and lips, umbilical cord, urinary bladder, and intracranial contents appear grossly unremarkable. spine appears within normal limits. Amniotic fluid index is 12.8 cm, within normal limits. kidneys appear grossly unremarkable. biometry: BPD 4.9 cm 21 weeks 0 days HC 18.6 cm 21 weeks 0 days Abdominal circumference 16.2 cm 21 weeks 3 days Femur length 3.5 cm 21 weeks 0 days Average age based on ultrasound is 21 weeks 1 days. Estimated date of delivery is 03/03/2019. Estimated weight is 401 g +/- 59 g IMPRESSION: Intrauterine gestation demonstrating no adverse features.
== END 2018-10-22 09:05 | disposition home or self-care (01) ==
LOC: BICULT 09:04
PROVIDERS: ATTEND Nurse Practitioner
DX: O09.92 Supervision of high risk pregnancy, unspecified, second trimester (principal); Z3A.21 21 weeks gestation of pregnancy
CPT/HCPCS: 76805